=== PATIENT | male | born 2000 | race Asian ===

== ENCOUNTER 2019-07-10 18:29 | Emergency (ER) | payer OTHER, SELFPAY ==
[2019-07-10 18:30] VITALS: BP 141/32; PULSE 79; RESP 16; TEMP 37.8; O2SAT 98; BMI 22.8
[2019-07-10] MEDS: Ibuprofen 600 MG Tablet PO (19:53)
[2019-07-10 21:00] VITALS: RESP 16
[2019-07-10] MEDS: 0.9% Normal Saline 1,000 ML 1000 ML IV (21:30)
[2019-07-10 21:42] LABS: Absolute Lymphocyte Count 0.59 X10^3/uL (0.83-4.51); Absolute Neutrophil Count 6.8 X10^3/uL (2.0-7.7); Basophil# 0.01 X10^3/uL; Basophil% 0.1 % (0-1); Eosinophil# 0.12 X10^3/uL; Eosinophils% 1.4 % (0-5); Hematocrit 41.2 % (40-54); Lymphocyte # 0.59 X10^3/ul (4.0); Mean Corpuscular Hgb 30.9 pg (27.0-32.0); Mean Corpuscular Volume 90.9 fL (80-94); Monocyte# 0.95 X10^3/uL; Monocyte% 11.2 % (0-10); NRBC Flagged by Analyzer 0 % (0-5); Neutrophil # 6.76 X10^3/uL (2.7-7.7); Neutrophil % 79.9 % (47-70); POSITIVE DIFFERENTIAL YES; POSITIVE MORPHOLOGY YES; Platelet Count 150 K/mm3 (150-450); RBC Distribution Width CV 11.3 % (11.6-14.6); Red Blood Count 4.53 M/mm3 (4.6-6.2); White Blood Count 8.5 K/mm3 (4.4-11.0)
[2019-07-10 21:49] LABS: Differential Indicated SCAN CRITERIA MET
[2019-07-10 21:51] VITALS: TEMP 37.1
[2019-07-10 21:52] LABS: AST(SGOT) 27 U/L (15-37); Alanine Aminotransfer ALT/SGPT 31 U/L (16-61); Albumin, Serum 3.7 g/dL (3.2-5.0); Alkaline Phosphatase 47 U/L (45-117); Anion Gap 6 (5-15); BUN 13 mg/dL (7-18); BUN/Creat Ratio 10.6 RATIO (10-20); Calcium,Total 8.6 mg/dL (8.5-10.1); Chloride 103 mmol/L (98-107); Creatinine, Serum 1.23 mg/dL (0.70-1.30); EST Glomerular Filtration Rate 79 mL/min (>60); Est Glom Filt Rate - Afr Amer 96 mL/min (>60); Estimated Creatinine Clearance 92.14 ml/min; Globulin 3.6 g/dL (2.2-4.2); Glucose 110 mg/dL (74-106); Lipase 232 U/L (73-393); Potassium 3.3 mmol/L (3.5-5.1); Protein, Total 7.3 g/dL (6.4-8.2); Sodium Level 136 mmol/L (136-145)
[2019-07-10 22:14] LABS: Differential Comment SCANNED
--- NOTE | 2019-07-10 23:10 | ED.VIS.GI ---
History of Present Illness Chief Complaint: Diarrhea Informant: Patient - Abdominal Pain/Flank Pain Onset: Days - 2 Context: Gradual Onset Quality: Cramping - Nausea/Vomiting/Emesis GI Symptom: Negative for: Nausea, Vomiting - Diarrhea/Melena/Hematochezia GI Symptom: Diarrhea. Negative for: Melena, Hematochezia Onset: Days - 2 Narrative: Patient is a 18-year-old male with no significant past medical history presenting with diarrhea. Patient states he has been having significant diarrhea for the past 2 days. He states he has had 10 bowel movements a day. He denies any blood with him. He denies associated nausea or vomiting. He notes he does have some crampy abdominal pain just before bowel movement. He did have a fever of up to 102 prior to arrival. He has some body aches and cough. Patient recently returned from [facility] where he was visiting for the holidays. He was eating a lot of different foods there. He is not sure of any sick contacts. He denies any recent antibiotics. He denies any history of C. difficile. Patient denies any other complaints at the time. He has been taking Tylenol and he took Imodium yesterday. Patient's last bowel movement is just prior to arrival. Past Medical History - Allergies and Home Meds Allergies/Adverse Reactions: Allergies No Known Allergies Allergy (Verified 07/10/19 18:30) Primary Care Physician: Care Physician,No Primary [Primary Care Provider] - Past Medical History: None Surgical History: noncontributory Smoking Status: Never smoker Review of Systems General: Reports: Chills, Fever. Denies: Sweats Eyes: Denies: Visual changes - bilaterally, Diplopia ENT: Denies: Rhinorrhea, Sore throat Cardiovascular: Denies: Chest pain, Palpitations Respiratory: Denies: Dyspnea, Cough, Dyspnea on exertion Gastrointestinal: Reports: Abdominal pain, Diarrhea. Denies: Nausea, Vomiting, Melena, Hematochezia Genitourinary: Denies: Dysuria, Hematuria, Frequency Musculoskeletal: Reports: Myalgias. Denies: Back pain, Extremity Pain Skin: Denies: Rash, Wounds Neurological: Denies: Headache, Weakness, Numbness Physical Exam Vital Signs/Narrative: Vital Signs Temp Resp 07/10/19 21:51 98.8 F 07/10/19 21:00 16 Inital Vital Signs reviewed: Yes General: Well nourished, Well developed, No Acute Distress Head: Normocephalic, Atraumatic Eyes: Perrl, EOMI ENT: Moist mucous membranes, No rhinorrhea Neck: Supple, Nontender Cardiovascular: Regular rate, Regular rhythm, No murmurs Respiratory: No distress, CTA bilaterally, Chest nontender Abdomen: Soft, Nontender, Nondistended, Normal bowel sounds. Negative for: Guarding, Rebound tenderness Back: Nontender, Normal Inspection Extremities: Nontender, No edema Skin: Normal color, No rash Neurological: Alert, Oriented x3, Cranial nerves II-XII grossly intact, Normal Strength, Normal Sensation Psychological: Normal affect, Normal Mood Diagnostic/Tx/Re-eval Laboratory Data 07/10/19 07/10/19 21:15 21:15 WBC 8.5 RBC 4.53 L Hgb 14.0 Hct 41.2 MCV 90.9 MCH 30.9 MCHC 34.0 RDW Std Deviation 38.0 RDW Coeff of Jaguar 11.3 L Plt Count 150 MPV 10.0 Immature Gran % (Auto) 0.400 Neut % (Auto) 79.9 H Lymph % (Auto) 7.0 L Gilliam % (Auto) 11.2 H Eos % (Auto) 1.4 Baso % (Auto) 0.1 Absolute Neuts (auto) 6.8 Absolute Lymphs (auto) 0.59 L Nucleated RBC % 0 Differential Comment SCANNED Sodium 136 Potassium 3.3 L Chloride 103 Carbon Dioxide 27.0 Anion Gap 6 BUN 13 Creatinine 1.23 Estim Creat Clear Calc 92.14 Est GFR (MDRD) Af Amer 96 Est GFR (MDRD) Non-Af 79 BUN/Creatinine Ratio 10.6 Glucose 110 H Calcium 8.6 Total Bilirubin 0.80 AST 27 ALT 31 Alkaline Phosphatase 47 Total Protein 7.3 Albumin 3.7 Globulin 3.6 Albumin/Globulin Ratio 1.0 Lipase 232 - Medical Decision Making Patient is evaluated for fever and diarrhea. He appears nontoxic in no acute distress. His abdomen is soft. Patient is in the ER for over 4 hours and does not have a bowel movement the entire time. He has normal vital signs. Initially I did a flu swab thinking it might be influenza as he also is having fever, myalgias and cough. This is negative. His lung sounds are clear. Patient states he would like an IV and some blood work. I did give him IV fluids as well as checking CBC and CMP. These are grossly normal.Patient is not have a significant leukocytosis. His glucose is 110. Potassium is 3.3. His lipase is normal. On reevaluation patient states he is feeling better and will go home. He is instructed to take Pepto-Bismol [id number] as needed for symptoms. He is counseled on signs and symptoms require return the emergency room. Likely this is viral. If it is bacterial, his symptoms are mild and is likely self-limited. He is given return precautions. I do not suspect C. difficile as he is otherwise well-appearing and has a normal white blood cell count. Patient is not able to produce a stool sample while in the emergency room. Patient is counseled on signs and symptoms requiring return to the emergency room. Patient verbalizes agreement and understand this plan. Patient discharged home in stable and improved condition. ED Disposition - Plan for ED Patient: Disposition: Home or Assisted Living Diagnosis: Diarrhea Instructions: DIARRHEA, Viral (Child) (Adult) Referrals: Care Physician,No Primary [Primary Care Provider] - Additional Instructions: You may take [id number] Pepto-Bismol as needed for your symptoms. Please be aware that this will make your poop look black. Return the emergency room if you develop worsening fever, abdominal pain or blood in your stool. Please follow-up with with your primary doctor.
[2019-07-10 23:50] VITALS: BP 121/67; PULSE 64; RESP 14; O2SAT 100
== END 2019-07-10 23:51 | disposition home or self-care (01) ==
PROVIDERS: Emergency Provider Emergency Medicine
DX: R19.7 Diarrhea, unspecified (principal)
CPT/HCPCS: 80053; 83690; 85025; 87804; 96360; 99282; J7030; A4216

== ENCOUNTER 2022-05-05 22:03 | Emergency (ER) | payer OTHER, SELFPAY ==
[2022-05-05 22:04] VITALS: BP 148/95; PULSE 77; RESP 15; TEMP 36.6; O2SAT 98; BMI 21.8
--- NOTE | 2022-05-05 22:39 | EDS_ITS ---
HPI History of Present Illness Chief Complaint: General Illness Narrative Narrative: 21-year-old male presenting with chills, body aches, right ear pain. He states he initially started the symptoms about 6 days ago. He was seen at the [facility] [place] [facility] and was told to take ibuprofen for his symptoms. He was seen again today and states he was there for 5 hours. He states he was tested for COVID, influenza. He states he has a headache and right ear pain which is developed over the course of the week. He has a mild dry cough and a sore throat. Patient states he has been taking Tylenol and ibuprofen with minimal relief. Denies neck pain but does endorse a headache but he feels like his headache is on the right side associated with the right ear. No visual complaints. Mild nausea without vomiting. He states he is eating and drinking but this is somewhat decreased because he does not feel well. No abdominal pain. He is making urine. No diarrhea. He states specifically he has not had a fever. He does state that the fluid has been longer on campus. PFSH PFSH Medical History no medical history Home Medications amoxicillin 875 mg-potassium clavulanate 125 mg tablet 1 tab PO BID #20 tabs 05/05/22 [Rx Last Taken Unknown] ondansetron 4 mg disintegrating tablet 4 mg PO Q8H PRN nausea and vomiting #10 tabs 05/05/22 [Rx Last Taken Unknown] Allergy/AdvReac Type Severity Reaction Status Date / Time No Known Allergies Allergy Verified 07/10/19 18:30 Social History Smoking Status: Never smoker ROS [facility] ED Constitutional Constitutional ED: Reports chills; Denies fever(s) Eyes Eyes: Denies change in vision or diplopia ENT ENT ED: Reports ear pain right, sore throat and other Details: Nasal congestion Cardiovascular Cardiovascular: Denies chest pain Respiratory/Chest Respiratory/Chest: Reports cough; Denies dyspnea on exertion Gastrointestinal Gastrointestinal: Reports nausea; Denies abdominal pain or vomiting Genitourinary Genitourinary ED: Denies dysuria or hematuria Musculoskeletal Musculoskeletal: Denies arthralgias or back pain Integumentary Denies abscess Neurologic Neurologic: Denies headache(s) Psychiatric Psychiatric: Denies anxiety or depression EXAM Physical Exam Const Vital Signs: 05/05/22 22:04 05/05/22 22:14 Temperature 97.8 F Temperature Source Temporal Pulse Rate 77 Respiratory Rate 15 Respiratory Effort Normal Respiratory Pattern Normal Blood Pressure 148/95 H Blood Pressure Mean 112 Pulse Ox 98 Oxygen Delivery Method Room Air Positive well nourished General Appearance ED: NAD; Negative for pallor HEENT Reports moist mucous membranes normocephalic Face and Sinus: normal facial exam Nose: external nose normal, nares normal and nasal mucous membranes and turbinates normal External Ear: external ears normal and no preauricular adenopathy Tympanic Membrane ED: Yes TM abnormal effusion, erythematous and perforation Mouth ED: Yes oral and palatal mucosa normal, Yes lips normal and Yes tongue normal Mouth: oral and palatal mucosa normal, lips normal and tongue normal Throat: posterior oropharynx normal, tonsils normal and uvula midline Eyes PERRL and EOMs intact bilaterally Neck no lymphadenopathy, supple and no meningeal signs Resp normal respiratory effort and clear to auscultation bilaterally Auscultation: Negative for rales, rhonchi or wheezes Cardio regular rate and regular rhythm GI normal to inspection, nondistended, normoactive bowel sounds Neuro oriented x3 and CN's II-XII intact bilaterally Psych mental status grossly normal Skin no rashes or lesions noted General Skin Exam: Negative for jaundice or pallor MDM MDM MDM Narrative Medical decision making narrative: Patient presenting with viral syndrome which started about 6 days ago. He states he was tested for COVID and influenza today however this is 6 days after the onset of symptoms. He may still have COVID or influenza and is not testing positive. He specifically notes he has not had a fever. He complains of right ear pain and headache which is persistent. He is awake and alert and has no specific findings on exam except for some mild right sided TM erythema. Neck is supple without lymphadenopathy or meningeal signs. Heart regular rate and rhythm without murmur. Respiratory rate is normal and he is not hypoxic or tachypneic. Lungs clear to auscultation. He says he has some mild nausea. He has a dry cough. I will give him Zofran for the nausea. Since his lungs are clear I do not think he needs a chest x-ray with normal vital signs. Given that his ear is slightly erythematous and his main complaint is right ear pain I will start him on Augmentin. He is given prescription for Augmentin and Zofran for home. If he is not improving he is to return to the ER. Impression: 1. viral syndrome 2. Otitis media Lab Data Attestation: I reviewed the patient's lab results. Discharge Plan Triage Chief Complaint: General Illness ED Provider: Clayton Lombardo Dx/Rx/DC Orders Instructions: ED Otitis Media Antibiotic ..., ED Viral Syndrome (Adult) Prescriptions: New amoxicillin-pot clavulanate 875-125 mg tablet 1 tab PO BID Qty: 20 0RF ondansetron 4 mg tablet,disintegrating 4 mg PO Q8H PRN (Reason: nausea and vomiting) Qty: 10 0RF Primary Care Provider: Care Physician,No Primary Referrals: Wilbert Castaneda MD [Med Staff - Yarder Operator] - 3-5 Days Care Physician,No Primary [Primary Care Provider] - Disposition Disposition: Home, Self Care
[2022-05-05] MEDS: Amox/Clavulanate 875 MG Tablet PO (22:45)
[2022-05-05] MEDS: Ondansetron ODT 4 MG Tablet PO (22:45)
== END 2022-05-05 22:55 | disposition home or self-care (01) ==
PROVIDERS: Emergency Provider Student in an Organized Health Care Education/Training Program; Visit Provider Student in an Organized Health Care Education/Training Program
DX: B34.9 Viral infection, unspecified (principal); H66.91 Otitis media, unspecified, right ear; Z20.822 Contact with and (suspected) exposure to COVID-19
CPT/HCPCS: 99283

== ENCOUNTER 2022-05-07 11:11 | Emergency (ER) | payer OTHER, SELFPAY ==
[2022-05-07 11:12] VITALS: BP 126/89; PULSE 77; RESP 16; TEMP 36.1; O2SAT 97; BMI 21.4
--- NOTE | 2022-05-07 11:16 | ED.RN ---
dr bernard aware of pt neuro sx
[2022-05-07 11:32] VITALS: BMI 21.4
--- NOTE | 2022-05-07 11:48 | CT_ITS ---
STUDY: CT BRAIN WITHOUT CONTRAST REASON FOR EXAM: Male, 21 years old. Vertigo -- right bells palsy RADIATION DOSAGE (If Supplied By Facility): CTDIvol = ( 44.99 ) mGy, DLP = ( 863.60 ) mGycm TECHNIQUE: Transaxial CT imaging of the brain was performed without administration of intravenous contrast material. Individualized dose optimization techniques were used for this CT. COMPARISON: No relevant priors. FINDINGS: Normal soft tissue structures. Normal calvarium. Normal size ventricles and extra-axial spaces for the patient''s age. Normal white matter tracts of the cerebral hemispheres. Normal basal ganglia and thalami. Normal brainstem. Normal cerebellum. There is no intracranial hemorrhage. There are no findings of an acute ischemic infarction. Normal visualized paranasal sinuses. CT/Brain/Head without Contrast IMPRESSION: Normal unenhanced CT scan of the brain. Electronically Signed: Tramaine Perez MD at 12:55 EST ,
[2022-05-07 12:14] LABS: Absolute Neutrophil Count 3.8 X10^3/uL (2.0-7.7); Basophil# 0.03 X10^3/uL; Basophil% 0.5 % (0-1); Eosinophil# 0.02 X10^3/uL; Eosinophils% 0.3 % (0-5); Hematocrit 47.7 % (40-54); Hemoglobin 15.8 g/dL (13.0-16.5); Lymphocyte % 33.2 % (19-41); Mean Corp Hgb Conc 33.1 g/dL (32-36); Mean Corpuscular Hgb 30.4 pg (27.0-32.0); Mean Corpuscular Volume 91.7 fL (80-94); Mean Platelet Vol. 10.1 fl (6.2-12.0); Monocyte# 0.37 X10^3/uL; Monocyte% 5.8 % (0-10); NRBC Flagged by Analyzer 0 % (0-5); Neutrophil # 3.78 X10^3/uL (2.7-7.7); Neutrophil % 59.7 % (47-70); POSITIVE MORPHOLOGY YES; Platelet Count 219 K/mm3 (150-450); RBC Distribution Width CV 11.2 % (11.6-14.6); RBC Distribution Width SD 38.1 fl (35.1-43.9); White Blood Count 6.3 K/mm3 (4.4-11.0)
[2022-05-07 12:16] LABS: Differential Indicated SCAN CRITERIA MET
[2022-05-07] MEDS: 0.9% Normal Saline 1,000 ML 1000 ML IV (12:17)
[2022-05-07] MEDS: Metoclopramide 10 MG/2 ML Vial 5 MG IV (12:17)
[2022-05-07 12:29] LABS: ALB/GLOB Ratio 1.2 RATIO (0.9-2.4); AST(SGOT) 14 U/L (15-37); Alanine Aminotransfer ALT/SGPT 15 U/L (16-61); Albumin, Serum 4.4 g/dL (3.2-5.0); Alkaline Phosphatase 54 U/L (45-117); Anion Gap 9 (5-15); BUN 14 mg/dL (7-18); BUN/Creat Ratio 12.7 RATIO (10-20); Calcium,Total 9.4 mg/dL (8.5-10.1); Chloride 103 mmol/L (98-107); EST Glomerular Filtration Rate 88 mL/min (>60); Est Glom Filt Rate - Afr Amer 106 mL/min (>60); Estimated Creatinine Clearance 100.45 ml/min; Globulin 3.6 g/dL (2.2-4.2); Glucose 95 mg/dL (74-106); Potassium 4.1 mmol/L (3.5-5.1); Sodium Level 138 mmol/L (136-145)
[2022-05-07 12:45] LABS: Differential Comment SCANNED; Reactive Lymphocyte 1+
[2022-05-07 13:09] VITALS: RESP 18
[2022-05-07] MEDS: predniSONE 20 MG Tablet 60 MG PO (13:10)
--- NOTE | 2022-05-07 17:52 | EDS_ITS ---
HPI History of Present Illness Chief Complaint: Neuro S/Sx Informant: patient and friend Narrative Narrative: Patient here with his friend for evaluation for illness over the past week. Reported headache with weakness sore throat. Has been having ear pain. Seen 2 days ago in the ED he was treated for ear infection with amoxicillin given Zofran. Since yesterday increasing dizziness with spinning causing more vomiting. Also reports feels like his right face is paralyzed. Denies paresthesias. No history of similar no sick contacts. [facility] negative for COVID. Denies past medical history. Denies any similar symptoms in the past. Prior similar symptoms: No PFSH PFSH Home Medications amoxicillin 875 mg-potassium clavulanate 125 mg tablet 1 tab PO BID #20 tabs 05/05/22 [Rx Last Taken Unknown] ondansetron 4 mg disintegrating tablet 4 mg PO Q8H PRN nausea and vomiting #10 tabs 05/05/22 [Rx Last Taken Unknown] meclizine 25 mg tablet 25 mg PO TID PRN dizziness #20 tabs 05/07/22 [Rx Last Taken Unknown] prednisone 20 mg tablet 60 mg PO DAILY #18 tabs 05/07/22 [Rx Last Taken Unknown] valacyclovir 1 gram tablet 1,000 mg PO TID #21 tabs 05/07/22 [Rx Last Taken Unknown] Allergy/AdvReac Type Severity Reaction Status Date / Time No Known Allergies Allergy Verified 05/07/22 11:13 Social History Smoking Status: Never smoker ROS ROS ED Constitutional Constitutional ED: Denies chills, fever(s) or sweats Eyes Eyes: Denies change in vision ENT ENT ED: Denies dysphagia or sore throat Cardiovascular Cardiovascular: Denies chest pain, leg edema, palpitations or racing heartbeat Respiratory/Chest Respiratory/Chest: Denies cough, dyspnea or dyspnea on exertion Gastrointestinal Gastrointestinal: Reports nausea and vomiting; Denies abdominal pain or diarrhea Genitourinary Genitourinary ED: Denies dysuria, hematuria or urinary frequency Musculoskeletal Musculoskeletal: Denies back pain, extremity pain or neck pain Integumentary Denies rash or wounds Neurologic Neurologic: Reports headache(s), weakness and other Details: Headache, dizziness, paralysis right face ; Denies paresthesias EXAM Physical Exam Const Vital Signs: 05/07/22 11:12 05/07/22 13:09 Temperature 97.0 F L Temperature Source Temporal Pulse Rate 77 Respiratory Rate 16 18 Blood Pressure 126/89 H Blood Pressure Mean 101 Pulse Ox 97 Oxygen Delivery Method Room Air Positive well nourished and well developed General Appearance ED: well developed and NAD HEENT Reports TM's clear and moist mucous membranes HEENT Narrative: Right-sided facial weakness with no sparing of forehead. Sensation was s ymmetric and normal. Patient able to fully close his eyes however slight weakness of eyelid. Minimal erythema around the TMs bilaterally is intact there is no exudates or fluid. normocephalic and atraumatic Tympanic Membrane ED: Yes TM's clear Eyes PERRL, EOMs intact bilaterally and conjunctivae normal General Eye ED: Yes normal appearance of both eyes Neck no lymphadenopathy and supple General: Negative for tenderness Chest Wall Chest: Negative for tenderness Resp normal respiratory effort and normal air movement Effort and Inspection: symmetric chest movement; Negative for respiratory distress Cardio regular rate, regular rhythm and no murmurs Peripheral Pulses: pulses 2+ throughout GI normal to inspection, nondistended, normoactive bowel sounds and non-tender Palpation: Negative for guarding or rebound tenderness present Back/Spine no CVA tenderness and no thoracic nor lumbar tenderness Extremity normal to inspection General Extremety ED: Negative for edema or tenderness General Extremity: Negative for edema Neuro oriented x3 and no sensory deficits noted Neuro Narrative: Right facial weakness Sensorium / Orientation: awake and alert Skin no rashes or lesions noted and no wounds MDM MDM MDM Narrative Medical decision making narrative: Patient clinically right-sided Stewart's palsy. However associated vertigo symp toms. Due to multiple neurologic deficits CT head was obtained which was negative. He was given IV Reglan with improvement of symptoms labs were obtained. He was started on prednisone in the ED prescription for valacyclovir for coverage of his Stewart's palsy. Discussed viral syndrome with symptoms over the past week. Prescription for meclizine to use as needed. He will follow-up as an outpatient. Return precautions. All questions were answered. Lab Data Attestation: I reviewed the patient's lab results. Labs: Laboratory Results - last 24 hr 05/07/22 05/07/22 12:05 12:05 WBC 6.3 RBC 5.20 Hgb 15.8 Hct 47.7 MCV 91.7 MCH 30.4 MCHC 33.1 RDW Std Deviation 38.1 RDW Coeff of Jaguar 11.2 L Plt Count 219 MPV 10.1 Immature Gran % (Auto) 0.500 Neut % (Auto) 59.7 Lymph % (Auto) 33.2 [place] % (Auto) 5.8 Eos % (Auto) 0.3 Baso % (Auto) 0.5 Absolute Neuts (auto) 3.8 Absolute Lymphs (auto) 2.10 Nucleated RBC % 0 Differential Comment SCANNED Reactive Lymphocytes 1+ Sodium 138 Potassium 4.1 Chloride 103 Carbon Dioxide 26.0 Anion Gap 9 BUN 14 Creatinine 1.10 Estim Creat Clear Calc 100.45 Est GFR (MDRD) Af Amer 106 Est GFR (MDRD) Non-Af 88 BUN/Creatinine Ratio 12.7 Glucose 95 Calcium 9.4 Total Bilirubin 1.20 H AST 14 L ALT 15 L Alkaline Phosphatase 54 Total Protein 8.0 Albumin 4.4 Globulin 3.6 Albumin/Globulin Ratio 1.2 Radiography Diagnostic Testing: Clinical Impression(s) from Imaging Studies Brain CT 05/07/22 11:48 IMPRESSION: Normal unenhanced CT scan of the brain. Electronically Signed: Tramaine Perez MD at 12:55 EST , Discharge Plan Triage Chief Complaint: Neuro S/Sx ED Provider: Gilbert Marino Dx/Rx/DC Orders Clinical Impression: Right-sided Stewart's palsy, Vertigo, Viral syndrome Instructions: ED Stewart's Palsy, ED Vertigo, Unspecified, ED Viral Syndrome (Adult) Prescriptions: New prednisone 20 mg tablet 60 mg PO DAILY Qty: 18 0RF meclizine 25 mg tablet 25 mg PO TID PRN (Reason: dizziness) Qty: 20 0RF valacyclovir 1 gram tablet 1,000 mg PO TID Qty: 21 0RF No Action amoxicillin-pot clavulanate 875-125 mg tablet 1 tab PO BID Qty: 20 0RF ondansetron 4 mg tablet,disintegrating 4 mg PO Q8H PRN (Reason: nausea and vomiting) Qty: 10 0RF Primary Care Provider: Care Physician,No Primary Referrals: Startzman,[place] [Non-Staff] - 1 Week Care Physician,No Primary [Primary Care Provider] - Activity Restrictions/Additional Instructions: Clinical Stewart's palsy. Take steroids and viral medicine as prescribed. You have vertigo symptoms. CT brain negative. Use meclizine as needed. Finish your antibiotics that was prescribed to you 2 days ago. Zofran as needed. Disposition Disposition: Home, Self Care Discharge Date/Time: 05/07/22 13:17
== END 2022-05-07 13:17 | disposition home or self-care (01) ==
PROVIDERS: Emergency Provider Emergency Medicine; Visit Provider Emergency Medicine
DX: R42 Dizziness and giddiness (principal); G51.0 Bell's palsy; B34.9 Viral infection, unspecified; H92.09 Otalgia, unspecified ear; R11.2 Nausea with vomiting, unspecified
CPT/HCPCS: 70450; 80053; 85025; 96361; 96374; 99284; A4216

== ENCOUNTER 2024-10-26 12:26 | Emergency (ER) | payer OTHER, SELFPAY ==
[2024-10-26 12:28] VITALS: BP 129/68; PULSE 52; RESP 11; TEMP 36.4; O2SAT 96; BMI 22.5
--- NOTE | 2024-10-26 12:58 | EX.ED.DYSGE1 ---
HPI <YINKA Faye - Last Filed: 10/26/24 16:04> History of Present Illness Chief Complaint: Numb/Ting Narrative Narrative: Patient presenting today due to concerns for vague complaints to the left side of his body. Initially he reported he was having numbness and tingling to the left side, when I asked him what exactly he meant by that, he reported that it felt more like a dull aching sensation intermittently to different parts of his body on the left side. He reports that sometimes it will feel like an aching sensation to his elbow, his knee, etc. He reports that this has been ongoing since around 8 AM this morning and comes and goes. He also reports feeling intermittently lightheaded with ambulation. He denies vertiginous dizziness. He denies focal weakness. He denies any recent illness, fevers, or chills. He reports that he is healthy otherwise. Has a previous history of Stewart's palsy. PFSH <YINKA Faye - Last Filed: 10/26/24 16:04> [facility] Home Medications ?Medication ?Instructions ?Recorded ?Last Taken ?Type NK 10/26/24 Unknown History Allergy/AdvReac Type Severity Reaction Status Date / Time No Known Allergies Allergy Verified 10/26/24 12:31 Social History Smoking Status: Never smoker ROS <YINKA Faye - Last Filed: 10/26/24 16:04> ROS ED Constitutional Constitutional ED: Denies chills or fever(s) Cardiovascular Cardiovascular: Denies chest pain Respiratory/Chest Respiratory/Chest: Denies dyspnea Gastrointestinal Gastrointestinal: Denies abdominal pain, nausea or vomiting Genitourinary Genitourinary ED: Denies dysuria, hematuria or urinary urgency Musculoskeletal Musculoskeletal: Denies arthralgias or myalgias Integumentary Denies rash Neurologic Neurologic: Denies dizziness or headache(s) EXAM <YINKA Faye - Last Filed: 10/26/24 16:04> Physical Exam Const Vital Signs: 10/26/24 12:28 10/26/24 14:40 Temperature 97.5 F L 97.4 F L Temperature Source Temporal Pulse Rate 52 L 53 L Respiratory Rate 11 L 15 Blood Pressure 129/68 H 116/59 L Blood Pressure Mean 88 78 Pulse Ox 96 100 Oxygen Delivery Method Room Air Positive well nourished, well developed and no apparent distress General Appearance ED: well developed HEENT Reports normocephalic and head/scalp atraumatic Mouth ED: Yes moist mucous membranes normal Eyes PERRL and EOMs intact bilaterally Neck full ROM and supple Chest Wall inspection of chest normal Resp normal respiratory effort and clear to auscultation bilaterally Cardio regular rate and regular rhythm GI soft to palpation, non-tender, non-distended and no masses Back/Spine normal ROM and normal to inspection Extremity normal to inspection and full ROM Neuro oriented x3, CN's II-XII intact bilaterally, moves all extremities, no focal motor deficits and no sensory deficits noted Neuro Narrative: NIH 0. Sensorium / Orientation: awake and alert Motor Exam: strength 5/5 throughout Psych mental status grossly normal and thought process normal Skin no rashes or lesions noted and no wounds <Dr. Juan Savage MD - Last Filed: 10/26/24 13:18> Physical Exam Const Vital Signs: 10/26/24 12:28 10/26/24 14:40 Temperature 97.5 F L 97.4 F L Temperature Source Temporal Pulse Rate 52 L 53 L Respiratory Rate 11 L 15 Blood Pressure 129/68 H 116/59 L Blood Pressure Mean 88 78 Pulse Ox 96 100 Oxygen Delivery Method Room Air MDM <YINKA Faye - Last Filed: 10/26/24 16:04> [facility] MDM Narrative Medical decision making narrative: Patient presenting today with vague complaints to the left side of his body. He initially reported numbness and tingling to the left side, when I asked him what he meant by that he then said it felt more like an aching sensation and not necessarily numbness. He currently is not having any numbness or tingling. He reports that the symptoms come and go and are nonspecific. He has a normal neurological exam with an NIH of 0. Exam is not consistent with stroke. CBC and BMP are unremarkable, CT scan of the brain negative for acute intracranial normality. At this point, I recommended he follow-up closely with his PCP, he will be discharged home in stable condition. I have personally performed a face to face assessment of the patient and have reviewed the SHAMEKA Note. I performed a substantive portion of the visit including all aspects of the following. My zapien findings include: History is 24-year-old male from the [employer] he is a senior student. An episode today of tingling on the left side of his face and body. It is since resolved. He had a prior history of Stewart's palsy several years ago. He denies any trouble moving his arms or legs. He denies any weakness or headache. No head trauma. Currently states he is feeling much better. Exam is [well-appearing 24-year-old male. Vital signs are stable afebrile. H EENT exam pupils round react light. Extra motions are intact. No facial droop. Normal speech. No trauma. Neck nontender. Lungs clear. Equal symmetrical bilaterally. Heart regular rhythm rate about 60 no murmur. Chest wall ribs nontender. Abdomen soft nontender. Moving all 4 extremities. Normal strength. Normal sensation. No weakness. No ataxia. Nontender no edema. 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 Normal sensation. Neurologic exam normal. NIH 0. Awake alert. Answer questions following commands. Normal speech. No facial droop. Fingertip to nose and [id number] within normal limits. No drift.] Medical Decision Making [24-year-old male transient symptoms resolved. Normal exam. CT brain and screening labs will be obtained.] Other additions or changes: [None] Lab Data Labs: Laboratory Results - last 24 hr 10/26/24 13:18 WBC 5.4 RBC 4.39 L Hgb 13.7 Hct 40.3 MCV 91.8 MCH 31.2 MCHC 34.0 RDW Std Deviation 39.8 RDW Coeff of Jaguar 11.8 Plt Count 203 MPV 10.2 Immature Gran % (Auto) 0.200 Neut % (Auto) 54.9 Lymph % (Auto) 36.3 [place] % (Auto) 7.1 Eos % (Auto) 1.1 Baso % (Auto) 0.4 Absolute Neuts (auto) 2.9 Absolute Lymphs (auto) 1.94 Nucleated RBC % 0 Sodium 139 Potassium 4.4 Chloride 106 Carbon Dioxide 24.8 Anion Gap 8 BUN 14 Creatinine 0.92 Estim Creat Clear Calc 122.56 Est GFR (MDRD) Non-Af 118 BUN/Creatinine Ratio 14.9 Glucose 91 Calcium 8.9 Radiography Diagnostic Testing: Clinical Impression(s) from Imaging Studies Brain CT 10/26/24 13:40 IMPRESSION: No acute intracranial pathology. Reading Location: [facility] <Dr. Juan Savage MD - Last Filed: 10/26/24 13:18> [facility] Narrative Medical decision making narrative: Patient presenting today with vague complaints to the left side of his body. He initially reported numbness and tingling to the left side, when I asked him what he meant by that he then said it felt more like an aching sensation and not necessarily numbness. He now denies having any numbness or tingling. He reports that the symptoms come and go and are nonspecific. He has a normal neurological exam with an NIH of 0. I have personally performed a face to face assessment of the patient and have reviewed the SHAMEKA Note. I performed a substantive portion of the visit including all aspects of the following. My zapien findings include: History is 24-year-old male from the [employer] he is a senior student. An episode today of tingling on the left side of his face and body. It is since resolved. He had a prior history of Stewart's palsy several years ago. He denies any trouble moving his arms or legs. He denies any weakness or headache. No head trauma. Currently states he is feeling much better. Exam is [well-appearing 24-year-old male. Vital signs are stable afebrile. H EENT exam pupils round react light. Extra motions are intact. No facial droop. Normal speech. No trauma. Neck nontender. Lungs clear. Equal symmetrical bilaterally. Heart regular rhythm rate about 60 no murmur. Chest wall ribs nontender. Abdomen soft nontender. Moving all 4 extremities. Normal strength. Normal sensation. No weakness. No ataxia. Nontender no edema. 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 Normal sensation. Neurologic exam normal. NIH 0. Awake alert. Answer questions following commands. Normal speech. No facial droop. Fingertip to nose and [id number] within normal limits. No drift.] Medical Decision Making [24-year-old male transient symptoms resolved. Normal exam. CT brain and screening labs will be obtained.] Other additions or changes: [None] History & Record Review Discussion w/independent historian: Patient Lab Data Attestation: I reviewed the patient's lab results. Labs: Laboratory Results - last 24 hr 10/26/24 13:18 WBC 5.4 RBC 4.39 L Hgb 13.7 Hct 40.3 MCV 91.8 MCH 31.2 MCHC 34.0 RDW Std Deviation 39.8 RDW Coeff of Jaguar 11.8 Plt Count 203 MPV 10.2 Immature Gran % (Auto) 0.200 Neut % (Auto) 54.9 Lymph % (Auto) 36.3 [place] % (Auto) 7.1 Eos % (Auto) 1.1 Baso % (Auto) 0.4 Absolute Neuts (auto) 2.9 Absolute Lymphs (auto) 1.94 Nucleated RBC % 0 Sodium 139 Potassium 4.4 Chloride 106 Carbon Dioxide 24.8 Anion Gap 8 BUN 14 Creatinine 0.92 Estim Creat Clear Calc 122.56 Est GFR (MDRD) Non-Af 118 BUN/Creatinine Ratio 14.9 Glucose 91 Calcium 8.9 Radiography Diagnostic Testing: Clinical Impression(s) from Imaging Studies Brain CT 10/26/24 13:40 IMPRESSION: No acute intracranial pathology. Reading [facility] Discharge Plan Triage Chief Complaint: Numb/Ting ED Midlevel Provider: Rica Guerrero ED Provider: Juan Savage Dx/Rx/DC Orders Clinical Impression: Paresthesia Instructions: ED Paraesthesias Prescriptions: No Action NK Primary Care Provider: Care Physician,No Primary Referrals: Care Physician,No Primary [Primary Care Provider] - Activity Restrictions/Additional Instructions: Follow-up with your PCP over the next 5 to 7 days, return for any worsening of your symptoms. Print Language: Arabic Disposition Disposition: Home, Self Care Discharge Date/Time: 10/26/24 14:40
--- NOTE | 2024-10-26 13:40 | CT_ITS ---
EXAM: NONCONTRAST CT SCAN OF THE HEAD CLINICAL HISTORY: Left facial numbness/tingling, dizziness nausea COMPARISON: May 07, 2022 TECHNIQUE: Serial axial series through the head were obtained without contrast. 2-D coronal and sagittal reformats were then obtained. DLP: 907.97 mGy-cm FINDINGS: Brain: There is no acute large territorial infarct, intracranial hemorrhage, midline shift or mass effect. The sella and pineal gland regions appear unremarkable. There is no evidence of cerebellar tonsillar herniation. Ventricles: There is no acute hydrocephalus. Basilar cisterns are patent. Paranasal sinuses: Well-aerated Mastoid air cells: Well-aerated. Calvarium: The bony calvarium is intact. Orbits: The bilateral globes are symmetric, without retrobulbar compressive mass lesion or hemorrhage. CT/Brain/Head without Contrast IMPRESSION: No acute intracranial pathology. Reading Location: [facility]
[2024-10-26 13:45] LABS: Absolute Lymphocyte Count 1.94 X10^3/uL (0.83-4.51); Absolute Neutrophil Count 2.9 X10^3/uL (2.0-7.7); Basophil# 0.02 X10^3/uL; Basophil% 0.4 % (0-1); Eosinophil# 0.06 X10^3/uL; Eosinophils% 1.1 % (0-5); Hematocrit 40.3 % (40-54); Hemoglobin 13.7 g/dL (13.0-16.5); Lymphocyte # 1.94 X10^3/ul (0.83-4.51); Lymphocyte % 36.3 % (19-41); Mean Corpuscular Hgb 31.2 pg (27.0-32.0); Mean Corpuscular Volume 91.8 fL (80-94); Mean Platelet Vol. 10.2 fl (6.2-12.0); Monocyte# 0.38 X10^3/uL; Monocyte% 7.1 % (0-10); NRBC Flagged by Analyzer 0 % (0-5); Neutrophil # 2.94 X10^3/uL (2.7-7.7); Neutrophil % 54.9 % (47-70); Platelet Count 203 K/mm3 (150-450); RBC Distribution Width CV 11.8 % (11.6-14.6); RBC Distribution Width SD 39.8 fl (35.1-43.9); Red Blood Count 4.39 M/mm3 (4.6-6.2); White Blood Count 5.4 K/mm3 (4.4-11.0)
[2024-10-26 14:16] LABS: Anion Gap 8 (5-15); BUN 14 mg/dL (4-19); BUN/Creat Ratio 14.9 RATIO (10-20); Calcium,Total 8.9 mg/dL (7.6-11.0); Carbon Dioxide 24.8 mmol/L (21.0-32.0); Chloride 106 mmol/L (98-108); Creatinine, Serum 0.92 mg/dL (0.70-1.20); EST Glomerular Filtration Rate 118 (>60); Estimated Creatinine Clearance 122.56 ml/min (50-250); Glucose 91 mg/dL (70-99); Potassium 4.4 mmol/L (3.3-5.1); Sodium Level 139 mmol/L (133-145)
[2024-10-26 14:40] VITALS: BP 116/59; PULSE 53; RESP 15; TEMP 36.3; O2SAT 100
== END 2024-10-26 14:40 | disposition home or self-care (01) ==
PROVIDERS: Physician Assistant; Emergency Provider Emergency Medicine; Visit Provider Emergency Medicine
DX: R20.2 Paresthesia of skin (principal)
CPT/HCPCS: 70450; 80048; 85025; 99282; A4216